=== PATIENT | female | born 1965 | race Caucasian/White ===

== ENCOUNTER → 2017-03-16 | Outpatient (CLI) | payer MEDICARE, OTHER ==
[~2017-03-16] MED LIST: ANTIVERT12.5 MG PO; DEPAKOTE; DITROPAN5 MG PO; DIVALPROEX SOD500 MG PO; ESTRACE1 M1 PO; IRON1 TA1 PO; KEFLEX500 MG PO; LEVOTHYROXINE175 MCG PO; LEVOXYL0.137 MG PO; LORTAB 5/500 TA1 TA1 PO; LORTAB 7.5-5001 TAB PO; NEXIUM; NEXIUM PO; OMEPRAZOLE20 M2 PO; PANTOPRAZOLE SO40 MG PO; PROZAC; PROZAC40 MG PO; SEROQUEL; SEROQUEL300 M1 PO; SIMVASTATIN40 MG PO; SYNTHROID; SYNTHROID PO; TIROSINT13 MCG PO; VESICARE PO; VICODIN 5/500 T1 TAB PO; VIT B-12 PO
--- NOTE | ~2017-03-16 | MY29 ---
[facility] A Service of [facility] RADIOLOGY TEXT RESULTS PATIENT: JOHN ASCENCIO LOCATION: [facility] : 67 UNIT #: [id number] AGE: [address]: Emmett Delgado MD SEX: F ORDER DR: [id number] [facility] [address] [place], [place] [address] [id number] O MR#: [id number] Acc #: [id number] NAME: JOHN ASCENCIO. : 1965 SEX: F STUDY DATE/TIME: 03/16/2017 16:20 UNIT: [facility] ROOM: STUDY DESCRIPTION: MY LOPEZ SCREENING W/ CAD BILAT Attending Physician: Emmett Delgado M.D. Ordering Physician: Emmett Delgado M.D. Primary Care Physician: Emmett Delgado M.D. MEDICAL IMAGING REPORT This report is preliminary unless electronic signature is present EXAM Digital screening mammogram 03/16/2017. HISTORY 51-year-old woman positive family history, sister/aunt. Annual screen. COMPARISON Outside mammograms now available 12/25/2013, 11/04/2014, 12/17/2015. FINDINGS Digital imaging of each breast was completed utilizing a two-view examination of each breast in craniocaudal and mediolateral-oblique projections. Review and interpretation of digital mammograms include a second review in conjunction with FDA-approved CAD device. There is a normal parenchymal presentation bilaterally consistent with the patient's age. There are no breast masses imaged and no parenchymal asymmetry is visualized. There are no suspicious microcalcifications and I see no focal architectural disturbance. IMPRESSION Negative screening digital mammogram. One-year followup recommended. ADDENDUM Breast parenchyma is fatty replaced. Patients over the age of 40 are entered into a reminder system with target due date for the next mammogram. A result letter will also be sent to the patient. BIRADS: 1 Negative [facility] A Service [facility] RADIOLOGY TEXT RESULTS PATIENT: JOHN ASCENCIO LOCATION: [facility] : 67 UNIT #: [id number] AGE: [address]: Emmett Delgado MD SEX: F ORDER DR: Dictated by... Jamar Grant M.D. THIS IS AN ELECTRONICALLY VERIFIED REPORT Jamar Grant M.D. at 03/20/2017 7:04 AM HUMA/rosalie TD: 03/19/2017 20:25 JOB #: [id number] MEDICAL IMAGING REPORT Page 1 of 1 COPY
== END | disposition home or self-care (01) ==
LOC: CWCC 02-23 11:45
DX: Z12.31 Encounter for screening mammogram for malignant neoplasm of breast (principal); Z80.3 Family history of malignant neoplasm of breast; R92.8 Other abnormal and inconclusive findings on diagnostic imaging of breast
CPT/HCPCS: G0202